=== PATIENT | male | born 1985 | race Caucasian/White ===

== ENCOUNTER 2018-09-08 17:38 | Inpatient (IN) | payer OTHER ==
[2018-09-08] MEDS ORDERED: SODIUM CHLORIDE 0.9% 1,000 ML IV STA (17:58)
--- NOTE | 2018-09-08 18:02 | ED ---
Abdominal Pain HPI <Juan Degroot - Last Filed: 09/08/18 20:10> - General Source: patient Mode of arrival: ambulatory Limitations: no limitations - History of Present Illness MD Complaint: abdominal pain (right side) Location: RLQ Quality: cramping, aching Improves With: nothing Worsens With: movement Associated Symptoms: vomiting, diarrhea, fever, chills <Haleigh Nickerson - Last Filed: 09/08/18 23:48> - General Chief Complaint: Abdominal Pain Stated Complaint: Abd Pain Time Seen by Provider: 09/08/18 17:48 - History of Present Illness Initial Comments: 33-year-old male presents with abdominal pain on and off for the last week. Patient states that got worse earlier today when he had a sharp pain on his right lower abdomen. Patient states he felt nauseous and had a few episodes of vomiting this week as well. Patient had loose stool as well. Patient states other family members were sick but got over it. Patient was fevers earlier in the week as well. Patient had cough congestion and green phlegm. Patient now having increasing abdominal pain about a 5 out of 10. HEENT had decreased appetite as well. No surgical history no medical history no medication use. (Haleigh Nickerson) - Related Data Home Medications Medication Instructions Recorded Confirmed Dextroamphetamine/Amphetamine 30 mg PO TID 09/08/18 09/08/18 [Adderall] Allergies Allergy/AdvReac Type Severity Reaction Status Date / Time No Known Allergies Allergy Verified 09/08/18 20:43 Review of Systems ROS Other: All systems not noted in ROS Statement are negative. <Juan Degroot - Last Filed: 09/08/18 20:10> ROS Other: All systems not noted in ROS Statement are negative. Constitutional: Reports: fever Respiratory: Reports: cough Endocrine: Reports: as per HPI Gastrointestinal: Reports: abdominal pain, nausea, vomiting, diarrhea Genitourinary: Denies: dysuria, hematuria Neurological: Denies: headache, weakness, numbness, paresthesias <Haleigh Nickerson - Last Filed: 09/08/18 23:48> ROS Statement: Those systems with pertinent positive or pertinent negative responses have been documented in the HPI. Past Medical History Past Medical History: No Reported History History of Any Multi-Drug Resistant Organisms: None Reported Past Surgical History: No Surgical Hx Reported Past Psychological History: ADD/ADHD Smoking Status: Current every day smoker Past Alcohol Use History: None Reported Past Drug Use History: None Reported <Haleigh Nickerson - Last Filed: 09/08/18 23:48> General Exam Limitations: no limitations General appearance: alert, in no apparent distress Head exam: Present: atraumatic, normocephalic, normal inspection Eye exam: Present: normal appearance, PERRL, EOMI. Absent: scleral icterus, conjunctival injection, periorbital swelling ENT exam: Present: normal exam, mucous membranes moist Respiratory exam: Present: normal lung sounds bilaterally. Absent: respiratory distress, wheezes, rales, rhonchi, stridor Cardiovascular Exam: Present: regular rate, normal rhythm, normal heart sounds. Absent: systolic murmur, diastolic murmur, rubs, gallop, clicks GI/Abdominal exam: Present: soft, tenderness (RLQ), guarding (RLQ), normal bowel sounds. Absent: distended, rebound, rigid Back exam: Present: normal inspection Neurological exam: Present: alert, oriented X3, CN II-XII intact Psychiatric exam: Present: normal affect, normal mood Skin exam: Present: warm, dry, intact, normal color. Absent: rash <Haleigh Nickerson - Last Filed: 09/08/18 23:48> Course Vital Signs 09/08/18 09/08/18 09/08/18 17:43 18:42 21:01 Temperature 97.6 F 98.7 F Pulse Rate 94 83 67 Respiratory 18 16 14 Rate Blood Pressure 140/106 149/95 133/91 O2 Sat by Pulse 99 97 99 Oximetry Medical Decision Making - Lab Data Result diagrams: 09/08/18 18:00 09/08/18 18:00 <Juan Degroot - Last Filed: 09/08/18 20:10> - Lab Data Result diagrams: 09/08/18 18:00 09/08/18 18:00 <Haleigh Nickerson - Last Filed: 09/08/18 23:48> - Medical Decision Making Vital decision making; is a 31-year-old male here with his significant other. The patient has been having loose stool for better part of 1 week today he s tarted having mid abdominal pain radiating down toward the right lower quadrant. Decreased appetite. Denies fever. Nausea no vomiting. No flank pain. The patient's examination found discomfort with guarding to the right lower quadrant positive rebound and referred pain to the right lower quadrant. Labs show white count of 9.8 hemoglobin 8 hematocrit of 51 urine shows 2 reds and 3 whites. The patient's CAT scan was done and reviewed by radiologist his impression is the appendix this is somewhat difficult to separate out from small bowel loops. However, air filled structure without dilatation appears to be present inferior to the cecum without adjacent inflammatory changes. Urinary bl adder is decompressed with limited evaluation. Prostate is unremarkable. No cyst versus lytic or sclerotic lesions. Multiple small bowel loops containing fluid. Findings Suggest Some Underlying Ileus. Air-Fluid Is within the Colon. Final Impression Appendix As Visualized appears within normal limits. No suspicious changes to suggest acute appendicitis is evident. #2 fluid-filled small bowel loops with air in fluid within the colon. Correlate for ileus. Gastroenteritis could be considered. As read by Dr. Huitron. I discussed the case with on-call general surgeon Dr. Neville. Reviewed the CAT scan and labs. Reviewed physical examination. Dr. Neville wants the patient admitted to his service, kept nothing by mouth, hydrated , pain managed.. No antibiotic at this time. Dr. Degroot (Juan Degroot) - Lab Data Lab Results 09/08/18 09/08/18 09/08/18 Range/Units 18:00 18:00 18:00 WBC 9.8 (3.8-10.6) k/uL RBC 5.97 H (4.30-5.90) m/uL Hgb 18.0 H (13.0-17.5) gm/dL Hct 51.6 (39.0-53.0) % MCV 86.4 (80.0-100.0) fL MCH 30.1 (25.0-35.0) pg MCHC 34.9 (31.0-37.0) g/dL RDW 14.0 (11.5-15.5) % Plt Count 443 (150-450) k/uL Neutrophils % 47 % Lymphocytes % 35 % Monocytes % 10 % Eosinophils % 3 % Basophils % 2 % Neutrophils # 4.6 (1.3-7.7) k/uL Lymphocytes # 3.5 (1.0-4.8) k/uL Monocytes # 1.0 (0-1.0) k/uL Eosinophils # 0.3 (0-0.7) k/uL Basophils # 0.2 (0-0.2) k/uL Sodium 141 (137-145) mmol/L Potassium 4.0 (3.5-5.1) mmol/L Chloride 108 H (98-107) mmol/L Carbon Dioxide 21 L (22-30) mmol/L Anion Gap 12 mmol/L BUN 19 (9-20) mg/dL Creatinine 0.80 (0.66-1.25) mg/dL Est GFR (CKD-EPI)AfAm >90 (>60 ml/min/1.73 sqM) Est GFR (CKD-EPI)NonAf >90 (>60 ml/min/1.73 sqM) Glucose 81 (74-99) mg/dL Calcium 9.8 (8.4-10.2) mg/dL Total Bilirubin 0.6 (0.2-1.3) mg/dL AST 52 (17-59) U/L ALT 65 (21-72) U/L Alkaline Phosphatase 69 (38-126) U/L Total Protein 8.0 (6.3-8.2) g/dL Albumin 4.7 (3.5-5.0) g/dL Amylase 50 (30-110) U/L Lipase 116 (23-300) U/L Urine Color Yellow Urine Appearance Clear (Clear) Urine pH 5.5 (5.0-8.0) Ur Specific [place] 1.036 H (1.001-1.035) Urine Protein 1+ H (Negative) Urine Glucose (UA) Negative (Negative) Urine Ketones Trace H (Negative) Urine Blood Negative (Negative) Urine Nitrite Negative (Negative) Urine Bilirubin Negative (Negative) Urine Urobilinogen 2.0 (<2.0) mg/dL Ur Leukocyte Esterase Negative (Negative) Urine RBC 2 (0-5) /hpf Urine WBC 3 (0-5) /hpf Hyaline Casts 7 H (0-2) /lpf Urine Mucus Moderate H (None) /hpf Stool Occult Blood (Negative) C. difficile (EIA) Intrp (Negative) Influenza Type A RNA (Not Detectd) Influenza Type B (PCR) (Not Detectd) 09/08/18 09/08/18 09/08/18 Range/Units 18:01 20:40 20:40 WBC (3.8-10.6) k/uL RBC (4.30-5.90) m/uL Hgb (13.0-17.5) gm/dL Hct (39.0-53.0) % MCV (80.0-100.0) fL MCH (25.0-35.0) pg MCHC (31.0-37.0) g/dL RDW (11.5-15.5) % Plt Count (150-450) k/uL Neutrophils % % Lymphocytes % % Monocytes % % Eosinophils % % Basophils % % Neutrophils # (1.3-7.7) k/uL Lymphocytes # (1.0-4.8) k/uL Monocytes # (0-1.0) k/uL Eosinophils # (0-0.7) k/uL Basophils # (0-0.2) k/uL Sodium (137-145) mmol/L Potassium (3.5-5.1) mmol/L Chloride (98-107) mmol/L Carbon Dioxide (22-30) mmol/L Anion Gap mmol/L BUN (9-20) mg/dL Creatinine (0.66-1.25) mg/dL Est GFR (CKD-EPI)AfAm (>60 ml/min/1.73 sqM) Est GFR (CKD-EPI)NonAf (>60 ml/min/1.73 sqM) Glucose (74-99) mg/dL Calcium (8.4-10.2) mg/dL Total Bilirubin (0.2-1.3) mg/dL AST (17-59) U/L ALT (21-72) U/L Alkaline Phosphatase (38-126) U/L Total Protein (6.3-8.2) g/dL Albumin (3.5-5.0) g/dL Amylase (30-110) U/L Lipase (23-300) U/L Urine Color Urine Appearance (Clear) Urine pH (5.0-8.0) Ur Specific [place] (1.001-1.035) Urine Protein (Negative) Urine Glucose (UA) (Negative) Urine Ketones (Negative) Urine Blood (Negative) Urine Nitrite (Negative) Urine Bilirubin (Negative) Urine Urobilinogen (<2.0) mg/dL Ur Leukocyte Esterase (Negative) Urine RBC (0-5) /hpf Urine WBC (0-5) /hpf Hyaline Casts (0-2) /lpf Urine Mucus (None) /hpf Stool Occult Blood Negative (Negative) C. difficile (EIA) Intrp Negative (Negative) Influenza Type A RNA Not Detected (Not Detectd) Influenza Type B (PCR) Not Detected (Not Detectd) Disposition <Juan Degroot - Last Filed: 09/08/18 20:10> Is patient prescribed a controlled substance at d/c from ED?: No Time of Disposition: 23:47 <Haleigh Nickerson - Last Filed: 09/08/18 23:48> Clinical Impression: Acute abdomen, RLQ abdominal pain Disposition: ADMITTED IP TO THIS HOSP Condition: Fair
[2018-09-08] MEDS ORDERED: ONDANSETRON 4 MG/2 ML VIAL IVP STA (18:11)
[2018-09-08] MEDS ORDERED: MORPHINE SULFATE 2 MG/ML SYRINGE IVP STA (18:11)
[2018-09-08 18:31] LABS: ALT 65 U/L (21-72); AST 52 U/L (17-59); Albumin 4.7 g/dL (3.5-5.0); Alkaline Phosphatase 69 U/L (38-126); Amylase 50 U/L (30-110); Anion Gap 12 mmol/L; Blood Urea Nitrogen 19 mg/dL (9-20); Calcium 9.8 mg/dL (8.4-10.2); Carbon Dioxide 21 mmol/L (22-30); Chloride 108 mmol/L (98-107); Glucose 81 mg/dL (74-99); Lipase 116 U/L (23-300); Sodium 141 mmol/L (137-145); Total Bilirubin 0.6 mg/dL (0.2-1.3)
[2018-09-08 18:39] LABS: Appearance,Urine Clear (Clear); Bilirubin,Urine Negative (Negative); Blood,Urine Negative (Negative); Color,Urine Yellow; Glucose,Urine (UA) Negative (Negative); Hyaline Casts,Urine 7 /lpf (0-2); Ketones,Urine Trace (Negative); Leukocyte Esterase,Urine Negative (Negative); Mucus,Urine Moderate /hpf; Nitrite,Urine Negative (Negative); PH, Urine 5.5 (5.0-8.0); Protein,Urine 1+ (Negative); RBC,Urine 2 /hpf (0-5); Specific Gravity,Urine 1.036 (1.001-1.035)
[2018-09-08 18:45] LABS: Basophils # (A) 0.2 k/uL (0-0.2); Basophils % (A) 2 %; Eosinophils # (A) 0.3 k/uL (0-0.7); Eosinophils % (A) 3 %; HCT 51.6 % (39.0-53.0); Lymphocytes # (A) 3.5 k/uL (1.0-4.8); Lymphocytes % (A) 35 %; MCH 30.1 pg (25.0-35.0); MCHC 34.9 g/dL (31.0-37.0); MCV 86.4 fL (80.0-100.0); Mean Platelet Volume 7.6; Monocytes % (A) 10 %; Neutrophils # (A) 4.6 k/uL (1.3-7.7); Neutrophils % (A) 47 %; Platelet Count 443 k/uL (150-450); RBC 5.97 m/uL (4.30-5.90); WBC 9.8 k/uL (3.8-10.6)
[2018-09-08] MEDS ORDERED: MORPHINE SULFATE 2 MG/ML SYRINGE IVP PRN (19:00)
--- NOTE | 2018-09-08 19:22 | CT ---
EXAMINATION TYPE: CT abdomen pelvis w con DATE OF EXAM: 09/08/2018 COMPARISON: None INDICATION: Right lower quadrant pain. DLP: 614.4 mGycm, Automated exposure control for dose reduction was used. CONTRAST: 100 mL of Isovue 300. Study performed without Oral Contrast TECHNIQUE: Axial images were obtained from above the diaphragm to the pubic rami in the axial plane a t 5 mm thick sections. Reconstructed images are reviewed on the computer in the coronal plane. FINDINGS: Limited CT sections are obtained the lung bases. The lung bases are clear. CT ABDOMEN: Liver: Normal Spleen: Normal Pancreas: Normal Adrenal glands: The adrenal glands are normal. Gallbladder: Normal Kidneys: No masses are evident. No hydronephrosis is present. No cysts are present. Delayed images were obtained through the kidneys, which remain unremarkable. Aorta: Normal Inferior vena cava: Normal. CT PELVIS: Multiple small bowel loops containing fluid. Findings can suggest some underlying ileus. Air fluid is within the colon. Appendix: This is somewhat difficult to separate out from small bowel loops. However, air-filled stru cture without dilatation appears to be present inferior to the cecum without adjacent inflammatory ch hector. Urinary bladder: Decompressed with limited evaluation. Genitourinary structures: Prostate is unremarkable. Osseous structures: No suspicious lytic or sclerotic lesions. IMPRESSIONS: 1. Appendix is visualized appears within normal limits. No suspicious changes to suggest acute appen dicitis is evident. 2. Fluid-filled small bowel loops with air in fluid within the colon. Correlate for ileus. Gastroente ritis could be considered.
--- NOTE | 2018-09-08 19:47 | XR ---
EXAMINATION TYPE: XR chest 2V DATE OF EXAM: 09/08/2018 COMPARISON: None INDICATION: Pain, fever chills vomiting TECHNIQUE: Frontal and lateral views of the chest are obtained. FINDINGS: The heart size is normal. The pulmonary vasculature is normal. The lungs are clear. Left nipple ring is present. IMPRESSION: 1. No acute pulmonary process.
[2018-09-08] MEDS ORDERED: NALOXONE 0.4 MG/ML 1 ML VIAL IV PRN (20:29)
[2018-09-08] MEDS ORDERED: ONDANSETRON 4 MG/2 ML VIAL IVP PRN (20:29)
[2018-09-08] MEDS: HYDROmorphone 1 MG/ML 1 ML SYRINGE IVP PRN (20:55)
[2018-09-09] MEDS: HYDROmorphone 1 MG/ML 1 ML SYRINGE IVP PRN ×3 (00:26→08:09)
[2018-09-09] MEDS: SODIUM CHLORIDE 0.9% 1,000 ML IV SCH ×2 (02:22→08:11)
[2018-09-09 05:36] VITALS: TEMP 97.6
[2018-09-09] MEDS ORDERED: HYDROmorphone 1 MG/ML 1 ML SYRINGE IVP PRN (09:54)
[2018-09-09 11:00] LABS: Basophils # (A) 0.1 k/uL (0-0.2); Basophils % (A) 1 %; Eosinophils # (A) 0.3 k/uL (0-0.7); Eosinophils % (A) 4 %; HCT 40.4 % (39.0-53.0); HGB 13.9 gm/dL (13.0-17.5); Lymphocytes % (A) 41 %; MCH 30.2 pg (25.0-35.0); MCHC 34.5 g/dL (31.0-37.0); MCV 87.7 fL (80.0-100.0); Monocytes # (A) 0.5 k/uL (0-1.0); Monocytes % (A) 7 %; Neutrophils # (A) 3.2 k/uL (1.3-7.7); Neutrophils % (A) 43 %; Platelet Count 325 k/uL (150-450); RBC 4.61 m/uL (4.30-5.90); RDW 13.9 % (11.5-15.5); WBC 7.4 k/uL (3.8-10.6)
[2018-09-09] MEDS ORDERED: PANTOPRAZOLE 40 MG/10 ML VIAL IVP ONE (11:21)
--- NOTE | 2018-09-09 11:31 | P.GSHP ---
History of Present Illness H&P Date: 09/09/18 33-year-old male presented to the emergency department with complaints of abdominal pain. He states that he has had abdominal pain, diarrhea for approximately 7 days. He states that he has also had multiple episodes of emesis. He states that approximately 1 week ago he developed fevers and had a large amount of abdominal pain along with multiple diarrhea episodes throughout the day. He states that the pain improved throughout the week, however he still was having diarrhea. Over the past wafer hours, he states that he had a significant amount of abdominal pain and a significant increase in diarrhea. He states that since his admission, his abdominal pain has greatly improved. He denied any relief from the abdominal pain with diarrhea. He denies any previous abdominal surgery. He denies any previous episodes of these symptoms. On his presentation, he did state he had a significant amount of suprapubic and right- sided abdominal pain, however this is now relieved. - Review of Systems All systems: negative Past Medical History Past Medical History: No Reported History History of Any Multi-Drug Resistant Organisms: None Reported Past Surgical History: No Surgical Hx Reported Past Anesthesia/Blood Transfusion Reactions: No Reported Reaction Past Psychological History: ADD/ADHD Smoking Status: Current every day smoker Past Alcohol Use History: None Reported Past Drug Use History: None Reported Medications and Allergies Home Medications Medication Instructions Recorded Confirmed Type Dextroamphetamine/Amphetamine 30 mg PO TID 09/08/18 09/08/18 History [Adderall] Allergies Allergy/AdvReac Type Severity Reaction Status Date / Time No Known Allergies Allergy Verified 09/08/18 20:43 Surgical - Exam Osteopathic Statement: *. No significant issues noted on an osteopathic structural exam other than those noted in the History and Physical/Consult. Vital Signs Temp Pulse Resp BP Pulse Ox 97.6 F 94 18 140/106 99 09/08/18 17:43 09/08/18 17:43 09/08/18 17:43 09/08/18 17:43 09/08/18 17:43 - General well nourished, no distress - Eyes PERRL - ENT no hearing loss - Respiratory normal respiratory effort - Abdomen Soft, nontender, nondistended, no rebound, no guarding - Psychiatric oriented to time, oriented to person, oriented to place Results - Labs 09/09/18 10:23 09/08/18 18:00 Abnormal Lab Results - Last 24 Hours (Table) 09/08/18 09/08/18 09/08/18 Range/Units 18:00 18:00 18:00 RBC 5.97 H (4.30-5.90) m/uL Hgb 18.0 H (13.0-17.5) gm/dL Chloride 108 H (98-107) mmol/L Carbon Dioxide 21 L (22-30) mmol/L Ur Specific [place] 1.036 H (1.001-1.035) Urine Protein 1+ H (Negative) Urine Ketones Trace H (Negative) Hyaline Casts 7 H (0-2) /lpf Urine Mucus Moderate H (None) /hpf Diabetes panel 09/08/18 Range/Units 18:00 Sodium 141 (137-145) mmol/L Potassium 4.0 (3.5-5.1) mmol/L Chloride 108 H (98-107) mmol/L Carbon Dioxide 21 L (22-30) mmol/L BUN 19 (9-20) mg/dL Creatinine 0.80 (0.66-1.25) mg/dL Glucose 81 (74-99) mg/dL Calcium 9.8 (8.4-10.2) mg/dL AST 52 (17-59) U/L ALT 65 (21-72) U/L Alkaline Phosphatase 69 (38-126) U/L Total Protein 8.0 (6.3-8.2) g/dL Albumin 4.7 (3.5-5.0) g/dL Calcium panel 09/08/18 Range/Units 18:00 Calcium 9.8 (8.4-10.2) mg/dL Albumin 4.7 (3.5-5.0) g/dL Pituitary panel 09/08/18 Range/Units 18:00 Sodium 141 (137-145) mmol/L Potassium 4.0 (3.5-5.1) mmol/L Chloride 108 H (98-107) mmol/L Carbon Dioxide 21 L (22-30) mmol/L BUN 19 (9-20) mg/dL Creatinine 0.80 (0.66-1.25) mg/dL Glucose 81 (74-99) mg/dL Calcium 9.8 (8.4-10.2) mg/dL Adrenal panel 09/08/18 Range/Units 18:00 Sodium 141 (137-145) mmol/L Potassium 4.0 (3.5-5.1) mmol/L Chloride 108 H (98-107) mmol/L Carbon Dioxide 21 L (22-30) mmol/L BUN 19 (9-20) mg/dL Creatinine 0.80 (0.66-1.25) mg/dL Glucose 81 (74-99) mg/dL Calcium 9.8 (8.4-10.2) mg/dL Total Bilirubin 0.6 (0.2-1.3) mg/dL AST 52 (17-59) U/L ALT 65 (21-72) U/L Alkaline Phosphatase 69 (38-126) U/L Total Protein 8.0 (6.3-8.2) g/dL Albumin 4.7 (3.5-5.0) g/dL - Imaging CT scan - abdomen: report reviewed, image reviewed CT scan - pelvis: report reviewed, image reviewed Assessment and Plan (1) RLQ abdominal pain Narrative/Plan: 33-year-old male with right lower quadrant abdominal pain - CT of the abdomen and pelvis was reviewed. There does not appear to be any inflammatory changes around the appendix. - Laboratory values were reviewed and 2 sets of CBC were drawn approximately 12 hours apart. There was no evidence of leukocytosis or left shift of neutrophils. - The patient has not had any febrile episodes or tachycardia throughout his admission - At this point, the patient does not appear to clinically have appendicitis, nor does he have any evidence on investigative studies - This appears to be gastroenteritis with the patient's history taken into account. We will continue IV fluid resuscitation and begin clear liquid diet. The patient has requested discharge as he has stated that he is currently underg oing a divorce and he is unable to see his children as often as he would like to and they are at his home currently. If the patient tolerates clear liquid diet and advancement of diet, we will plan for discharge as the patient is surgically stable. Current Visit: Yes Status: Acute Code(s): R10.31 - RIGHT LOWER QUADRANT PAIN SNOMED Code(s): 725638934
[2018-09-09 12:25] VITALS: BP 108/69; PULSE 56; RESP 18
--- NOTE | 2018-09-09 13:30 | P.DS ---
Providers Date of admission: 09/09/18 11:27 Attending physician: Nichol Neville DO Primary care physician: Shawn Monroy - Discharge Diagnosis(es) (1) RLQ abdominal pain Current Visit: Yes Status: Acute Hospital Course: Admitted from the ER to rule out appendicitis. His pain improved over night and he did have some diarrhea episodes. CT A/P was reviewed along with repeat blood work. No evidence of leukocytosis. No fevers. No tachycardia. Pain resolution was noted. CT with no evidence of appendicitis. The patient requested discharge because he was feeling better. HE did leave the room and was wandering around the ER and then returned to the floor according to nursing. At this point, the patient is surgically stable for discharge as he is currently nonsurgical. Patient Condition at Discharge: Fair Plan - Discharge Summary New Discharge Prescriptions: New Pantoprazole Sodium [Protonix] 20 mg PO DAILY #30 tablet. Continue Dextroamphetamine/Amphetamine [Adderall] 30 mg PO TID Discharge Medication List Dextroamphetamine/Amphetamine [Adderall] 30 mg PO TID 09/08/18 [History] Pantoprazole Sodium [Protonix] 20 mg PO DAILY #30 tablet. 09/09/18 [Rx] Follow up Appointment(s)/Referral(s): Porfirio Escobar MD [Primary Care Provider] - 1-2 days Discharge Disposition: HOME SELF-CARE
== END 2018-09-09 14:11 | disposition home or self-care (01) | DRG 392 ==
LOC: EC 17:38 → 3NMEDONC 22:27 → OBSVTOIN 09-09 11:27
PROVIDERS: ADMIT Surgery; ATTEND Surgery
DX: K52.9 Noninfective gastroenteritis and colitis, unspecified (principal); F90.9 Attention-deficit hyperactivity disorder, unspecified type; F17.210 Nicotine dependence, cigarettes, uncomplicated; Z79.899 Other long term (current) drug therapy; Z63.5 Disruption of family by separation and divorce
CPT/HCPCS: 36415; 71046; 74177; 80053; 81001; 82150; 82272; 83630; 83690; 85025; 87045; 87046; 87324; 87502; 96361; 96374; 96375; 96376; 99285

== ENCOUNTER 2019-06-27 06:42 | Emergency (ER) | payer OTHER ==
[2019-06-27 06:51] VITALS: RESP 18; TEMP 98.3
[2019-06-27] MEDS ORDERED: HYDROcodone/APAP 10-325MG 1 EACH TAB PO ONE (07:32)
[2019-06-27] MEDS ORDERED: ACET/COD 300 MG/30 MG STARTER PACK 6 TAB BTL PO STA (07:33)
--- NOTE | 2019-06-27 07:35 | ED ---
ENT HPI - General Chief complaint: Dental/Oral Stated complaint: Dental Pain Time Seen by Provider: 06/27/19 07:02 Source: patient Mode of arrival: ambulatory Limitations: no limitations - History of Present Illness Initial comments: 34-year-old male presenting today for chief complaint of left lower dental pain. She states Darin he cracked his back molar. He states that he has had increasing pain since. He states that the pain radiates up his jaw towards his ear. Patient denies any swelling. Tongue he admits to left-sided mild lower facial swelling denies any swelling of the neck trismus or difficulty breathing or swallowing. Patient denies any fever or flulike symptoms. Patient states due to the pain he presents emergency department for evaluation. Remaining review of systems negative upon arrival patient appears well he is sleeping when initially presented to obtain history. - Related Data Home Medications Medication Instructions Recorded Confirmed Dextroamphetamine/Amphetamine 30 mg PO TID 09/08/18 09/08/18 [Adderall] Previous Rx's Medication Instructions Recorded Pantoprazole Sodium [Protonix] 20 mg PO DAILY #30 tablet. 09/09/18 Amoxicillin/Potassium Clav 1 tab PO Q12HR 7 Days #14 tab 06/27/19 [Augmentin 875-125 Tablet] Allergies Allergy/AdvReac Type Severity Reaction Status Date / Time No Known Allergies Allergy Verified 09/08/18 20:43 Review of Systems ROS Statement: Those systems with pertinent positive or pertinent negative responses have been documented in the HPI. ROS Other: All systems not noted in ROS Statement are negative. Past Medical History Past Medical History: No Reported History History of Any Multi-Drug Resistant Organisms: None Reported Past Surgical History: No Surgical Hx Reported Past Anesthesia/Blood Transfusion Reactions: No Reported Reaction Past Psychological History: ADD/ADHD Smoking Status: Current every day smoker Past Alcohol Use History: None Reported Past Drug Use History: None Reported General Exam - General Exam Comments Initial Comments: General: The patient is awake and alert, in no distress Eye: +3 mm pupils are equal, round and reactive to light, extra-ocular movements are intact. No nystagmus. There is normal conjunctiva bilaterally. No signs of icterus. Ears, nose, mouth and throat: There are moist mucous membranes and no oral lesions. Tooth #16 is cracked, no adjacent abscess, no swelling below the tongue or below the angle of the mandible. Neck: The neck is supple, there is no tenderness or JVD. Musculoskeletal: Normal ROM, no tenderness. Strength 5/5. Sensation intact. P ulses equal bilaterally 2+. Neurological: A&O x 3. CN II-XII intact grossly, There are no obvious motor or sensory deficits. Coordination appears grossly intact. Speech is normal. Skin: Skin is warm and dry and no rashes or lesions are noted. Psychiatric: Cooperative, appropriate mood & affect, normal judgment. Limitations: no limitations Course Vital Signs 06/27/19 06/27/19 06/27/19 06:48 07:51 07:58 Temperature 98.3 F Pulse Rate 59 L 62 Respiratory 18 18 18 Rate Blood Pressure 156/93 155/89 O2 Sat by Pulse 98 98 Oximetry Medical Decision Making - Medical Decision Making 34-year-old male presented for left lower dental pain no evidence of abscess. Patient has chronic dentition. Most of because of pain no signs of Fabricio's angina or systemic spread of infection patient does not appear toxic at this time feel he stated for discharge with antibiotic treatment and follow-up with dentist today for extraction and further care follow-up. Patient is agreeable this care plan, return parameters were discussed patient was discharged appearing well. Case discussed with Dr. Hartley Disposition Clinical Impression: Pain, dental Disposition: HOME SELF-CARE Condition: Good Instructions (If sedation given, give patient instructions): Dental Abscess (ED), Toothache (ED) Additional Instructions: Please use medication as discussed. Please follow-up with dentist for extraction, monitor for facial swelling, swelling below the tongue, fevers, flu likes symptoms--if these arise then you may return to the ER. Please return to emergency room if the symptoms increase or worsen or for any other concerns. Prescriptions: Amoxicillin/Potassium Clav [Augmentin 875-125 Tablet] 1 tab PO Q12HR 7 Days #14 tab Is patient prescribed a controlled substance at d/c from ED?: No Referrals: Porfirio Escobar MD [Primary Care Provider] - 1-2 days Time of Disposition: 07:34
[2019-06-27 07:58] VITALS: BP 155/89; PULSE 62
== END 2019-06-27 07:59 | disposition home or self-care (01) ==
LOC: EC 06:42
DX: K08.89 Other specified disorders of teeth and supporting structures (principal); K00.7 Teething syndrome; K03.81 Cracked tooth; R68.84 Jaw pain; H92.02 Otalgia, left ear; R22.0 Localized swelling, mass and lump, head; F90.9 Attention-deficit hyperactivity disorder, unspecified type; F17.200 Nicotine dependence, unspecified, uncomplicated; Z79.899 Other long term (current) drug therapy
CPT/HCPCS: 99283